=== PATIENT | female | born 1995 | race Caucasian/White ===

== ENCOUNTER 2018-05-18 06:58 | Inpatient (IN) | payer BC ==
[~2018-05-18] VITALS: Ht 154.9 cm; Wt 57.7 kg
[2018-05-28] VITALS (54 sets, daily range): BP systolic 124–160; BP diastolic 79–107; PULSE 60–113; TEMP 97.5–99.1
[2018-05-28] MEDS ORDERED: PRENATAL MVI (07:41)
[2018-05-28 08:31] LABS: BASO # 0.1 (0.0-0.2); BASO % 1.1 % (0.0-2.0); EOS # 0.2 (0.0-0.7); EOS % 2.3 % (0-4.0); GRAN # 3.7 (1.4-6.5); GRAN % 56.3 % (42.2-75.2); HEMATOCRIT 42.2 % (37.0-47.0); HEMOGLOBIN 14.3 g/dl (12.5-16.0); MEAN CELL VOLUME 88 fl (80.0-100.0); MEAN CORPUSCULAR HEMOGLOBIN 30 pg (27.0-31.0); MEAN CORPUSCULAR HGB CONC 34 g/dl (33.0-37.0); MEAN PLATELET VOLUME 13.1 fl (7.4-10.4); MONO # 0.6 (0.1-0.6); MONO % 9.8 % (1.7-9.3); PLATELET COUNT 182 K/mm3 (130-400); RED BLOOD COUNT 4.79 M/mm3 (4.10-5.30); REDCELL DISTRIBUTION WIDTH-CV 13.5 % (11.5-14.5)
[2018-05-29 02:10] VITALS: BP 138/100; PULSE 80; TEMP 97.6
[2018-05-29 06:40] VITALS: BP 155/98; PULSE 61; TEMP 98.1
[2018-05-29 09:00] VITALS: BP 136/80; PULSE 85
[2018-05-29 12:30] VITALS: BP 143/99; PULSE 72; TEMP 98.9
[2018-05-29 16:25] VITALS: BP 141/99; PULSE 81; TEMP 98.7
[2018-05-29 20:30] VITALS: BP 142/89; PULSE 78; TEMP 98.3
[2018-05-30] MEDS ORDERED: MOTRIN 800800 MG/TAB PO (07:28)
[2018-05-30 09:30] VITALS: BP 139/108; PULSE 89; TEMP 97.9
[2018-05-30 10:10] VITALS: BP 138/97
== END 2018-05-30 13:30 | disposition home or self-care (01) | DRG 807 ==
LOC: LDR 05-28 06:57 → OB 05-28 07:12
PROVIDERS: Obstetrics & Gynecology
PROC: 10E0XZZ Delivery of Products of Conception, External Approach (ICD-10-PCS; principal; 2018-05-28)
PROC: 10907ZC Drainage of Amniotic Fluid, Therapeutic from Products of Conception, Via Natural or Artificial Opening (ICD-10-PCS; 2018-05-28)
PROC: 3E033VJ Introduction of Other Hormone into Peripheral Vein, Percutaneous Approach (ICD-10-PCS; 2018-05-28)
PROC: 0UQKXZZ Repair Hymen, External Approach (ICD-10-PCS; 2018-05-28)
DX: O36.5930 Maternal care for other known or suspected poor fetal growth, third trimester, not applicable or unspecified (principal); Z37.0 Single live birth; O48.0 Post-term pregnancy; Z3A.40 40 weeks gestation of pregnancy; O70.0 First degree perineal laceration during delivery
CPT/HCPCS: J2590; J7120

== ENCOUNTER 2019-07-20 02:31 | Emergency (ER) | payer BC ==
[~2019-07-20] VITALS: Ht 154.9 cm; Wt 50.0 kg
[~2019-07-20 02:31] MED LIST: MOTRIN 800800 MG/TAB PO; PRENATAL MVI
[2019-07-20 02:34] VITALS: TEMP 97.9
[2019-07-20 03:15] LABS: BASO # 0.1 (0.0-0.2); BASO % 0.8 % (0.0-2.0); EOS # 0.3 (0.0-0.7); EOS % 2.3 % (0-4.0); GRAN # 7.2 (1.4-6.5); GRAN % 62.4 % (42.2-75.2); HEMATOCRIT 38.7 % (37.0-47.0); HEMOGLOBIN 13.1 g/dl (12.5-16.0); LYMPH # 2.8 (1.2-3.4); LYMPH % 23.9 % (20.0-51.0); MEAN CELL VOLUME 87 fl (80.0-100.0); MEAN CORPUSCULAR HEMOGLOBIN 29 pg (27.0-31.0); MEAN CORPUSCULAR HGB CONC 34 g/dl (33.0-37.0); MEAN PLATELET VOLUME 10.1 fl (7.4-10.4); MONO # 1.2 (0.1-0.6); MONO % 10.4 % (1.7-9.3); PLATELET COUNT 300 K/mm3 (130-400); RED BLOOD COUNT 4.47 M/mm3 (4.10-5.30); REDCELL DISTRIBUTION WIDTH-CV 12.2 % (11.5-14.5)
[2019-07-20 03:24] LABS: ALBUMIN 4.6 gm/dL (3.5-5.0); BILIRUBIN,TOTAL 0.3 mg/dL (0.0-1.0); CALCIUM 9.2 mg/dL (8.4-10.2); CREATININE, serum 0.51 (0.52-1.25); MAGNESIUM 1.9 mg/dL (1.6-2.3); POTASSIUM 3.7 mmol/L (3.4-5.0); TOTAL PROTEIN 8.3 gm/dL (6.4-8.2)
[2019-07-20 03:54] LABS: THYROID STIMULATING HORMONE 1.29 uIU/mL (0.465-4.680)
[2019-07-20 04:15] LABS: COLLECTION METHOD CLEAN CATCH
[2019-07-20 04:21] LABS: MUCOUS Present /lpf; PH 7 (5-8); SQUAMOUS EPITHELIAL 0-2 /hpf; URINE APPEARANCE Clear; URINE BACTERIA None Seen /hpf; URINE BILIRUBIN Negative (NEGATIVE); URINE BLOOD Negative (NEGATIVE); URINE COLOR Straw; URINE GLUCOSE Negative (NEGATIVE); URINE KETONE Negative (NEGATIVE); URINE LEUKOCYTE ESTERASE 2+ (NEGATIVE); URINE NITRATE Negative (NEGATIVE); URINE PROTEIN(semi-quant) Negative (NEGATIVE); URINE RBC 0-2 /hpf; URINE UROBILINOGEN Negative (NEGATIVE)
[2019-07-20] MEDS ORDERED: CEFTIN500 MG PO (04:51)
[2019-07-20 05:57] VITALS: BP 115/75; PULSE 81
== END 2019-07-20 05:57 | disposition home or self-care (01) ==
LOC: COL.ER 02:31
PROVIDERS: Emergency Medicine
DX: N39.0 Urinary tract infection, site not specified (principal)
CPT/HCPCS: A4216; J0696; J7120